=== PATIENT | female | born 1990 | race African-American/Black ===

== ENCOUNTER 2019-09-17 13:31 | Emergency (ER) | payer OTHER, SELFPAY ==
[2019-09-17 13:48] VITALS: BP 127/67; PULSE 85; RESP 18; TEMP 36.4; O2SAT 97
--- NOTE | 2019-09-17 13:50 | ED.GENADULT ---
HPI - General Adult General Chief complaint: Ear Stated complaint: left ear pain Source: patient and RN notes reviewed Mode of arrival: ambulatory Limitations: no limitations History of Present Illness HPI narrative: This is a 29 years old female presents to the office for an evaluation of left ear pain for one week. Pain is radiated down to her throat/neck. Denies any other associated symptoms such as cough, fever, sore throat or abdominal pain. She tried otc ear drops and tylenol with no relief. Related Data Allergies Allergy/AdvReac Type Severity Reaction Status Date / Time No Known Allergies Allergy Verified 09/17/19 13:53 Review of Systems Review of Systems: Narrative: CONSTITUTIONAL: Denies fever, chills. ENT: Denies congestion, sore throat, or dental pain CARDIOVASCULAR: Denies chest pain RESPIRATORY: Denies cough GASTROINTESTINAL: Denies abdominal pain, nausea, vomiting GENITOURINARY: Denies urinary symptoms SKIN: Denies rash MUSCULOSKELETAL: Denies acute back pain NEUROLOGIC: Denies lightheaded PMFSH Social History Social History Gender identity (if verbalized by the patient): Female Comments At time of signature, I agree with nursing past medical, surgical, social and family history. There is no relevant family history pertinent to the presenting complaint. Exam Narrative: Exam Narrative: GENERAL: This is a well-nourished, well-developed patient, in no apparent distress. EARS: External ears normal, auditory canals clear and without drainage, TMs normal without perforation, left TM noted fluid level. Hearing grossly intact. NOSE: External nose normal with no obvious nasal discharge, nares without redness, no rhinorrhea. THROAT: Mucous membranes moist, posterior pharynx clear. NECK: Neck supple, non-tender without lymphadenopathy, masses or thyromegaly. CARDIOVASCULAR: Regular rate and rhythm without murmurs, gallops, or rubs. RESPIRATORY: Clear to auscultation. Breath sounds equal bilaterally. No wheezes, rales, or rhonchi. GASTROINTESTINAL: Abdomen soft, non-tender, nondistended. Bowel sounds are active. No hepato-splenomegaly, or palpable masses. No guarding. SKIN: warm, intact with no suspicious lesions or rash, good texture and turgor. NEURO: awake, alert, and oriented to person, place and time. There were no obvious focal neurologic abnormalities. Steady gait M[place] Coma Scale Eye Opening: Spontaneous 4 [place] Coma Scale Motor: Obeys Commands 6 [place] Coma Scale Verbal: Oriented 5 Course Vital Signs Vital signs: Vital Signs Temperature 97.6 F 09/17/19 13:48 Pulse Rate 85 09/17/19 13:48 Respiratory Rate 18 09/17/19 13:48 Blood Pressure 127/67 09/17/19 13:48 Pulse Oximetry 97 09/17/19 13:48 Temperature 97.6 F 09/17/19 13:48 Pulse Rate 85 09/17/19 13:48 Respiratory Rate 18 09/17/19 13:48 Blood Pressure 127/67 09/17/19 13:48 Pulse Oximetry 97 09/17/19 13:48 Medical Decision Making MDM Narrative Medical decision making narrative: Discharge instructions reviewed with patient, as well as provided in writing per nursing staff. The instructions also include specific and strict return/GO TO THE ER as well as f/u information. All questions have been answered, and the patient deny any further questions with discharge and discharge plan. Differential Diagnosis Differential Diagnosis: otitis media, cerumen impaction, otitis externa, URI Vital Signs Vital Signs: Vital Signs Temperature 97.6 F 09/17/19 13:48 Pulse Rate 85 09/17/19 13:48 Respiratory Rate 18 09/17/19 13:48 Blood Pressure 127/67 09/17/19 13:48 Pulse Oximetry 97 09/17/19 13:48 Temperature 97.6 F 09/17/19 13:48 Pulse Rate 85 09/17/19 13:48 Respiratory Rate 18 09/17/19 13:48 Blood Pressure 127/67 09/17/19 13:48 Pulse Oximetry 97 09/17/19 13:48 Critical Care Time Critical Care Time Critical Care T
== END 2019-09-17 14:02 | disposition home or self-care (01) ==
PROVIDERS: Emergency Provider Nurse Practitioner
DX: H65.02 Acute serous otitis media, left ear (principal)
CPT/HCPCS: 99213; G0463

== ENCOUNTER 2020-06-17 16:01 | Emergency (ER) | payer OTHER, SELFPAY ==
[2020-06-17 16:11] VITALS: BP 142/89; PULSE 91; RESP 16; TEMP 36.8; O2SAT 99
--- NOTE | 2020-06-17 16:28 | ED.FEMALEGU ---
HPI - Female Genitourinary General Chief complaint: Urogenital-Female Stated complaint: possible uti Time Seen by Provider: 06/17/20 16:28 Source: patient Mode of arrival: ambulatory Limitations: no limitations History of Present Illness HPI Narrative: Vianney Guy is a 30 yo female with no PMH with no history of sick since February, comes with complaints of discharge that started after her menses stopped. She denies any pain denies any lesions. Discharge been present for 2 days; has odor Related Data Allergies Allergy/AdvReac Type Severity Reaction Status Date / Time No Known Allergies Allergy Verified 06/17/20 16:05 Review of Systems Review of Systems: Narrative: CONSTITUTIONAL: Denies fever, chills, sweats. EYES: Denies visual changes, redness, discharge. ENT: Denies rhinorrhea, congestion, sore throat, otalgia. CARDIOVASCULAR: Denies chest pain, palpitations, edema. RESPIRATORY: Denies dyspnea, wheezing, cough GASTROINTESTINAL: Denies abdominal pain, nausea, vomiting, diarrhea. GENITOURINARY: Mild dysuria, hematuria, has abnormal discharge SKIN: Denies rash or itching. NEUROLOGIC: Denies numbness, or focal weakness. PSYCHIATRIC: Denies anxiety or depression. PMFSH Past Medical History Medical History No acute medical problems Family History Family History Other Hypertension Social History Social History Smoking status: Never smoker Alcohol intake: never Gender identity (if verbalized by the patient): Female Comments At time of signature, I agree with nursing past medical, surgical, social and family history. There is no relevant family history pertinent to the presenting complaint. Exam Narrative: Exam Narrative: GENERAL: This is a well-nourished, well-developed patient, in mild distress. HEAD: normocephalic, atraumatic. EYES: Sclera clear/white. Vision is grossly intact. EARS: External ears normal, Hearing grossly intact. NOSE: External nose normal without nasal discharge, nares without redness, no rhinorrhea. THROAT: Mucous membranes moist, NECK: Neck supple, CARDIOVASCULAR: Regular rate and rhythm without murmurs, gallops, or rubs. RESPIRATORY: Clear to auscultation. Breath sounds equal bilaterally. No wheezes, rales, or rhonchi. GASTROINTESTINAL: Abdomen soft, Genitourinary: moderate amount of white discharge at vaginal opening, n lesions in vaginal vault,no CMT SKIN: warm, intact with no suspicious lesions or rash, good texture and turgor. NEURO: awake, alert, and oriented to person, place and time. There were no obvious focal neurologic abnormalities. Steady gait EXTREMITIES: Normal range of motion. BACK: Nontender without deformity Course Course Emergency Course: Patient came for assessment of vaginal discharge post menses denies any sexual activity Pelvic exam done patient will be treated with metronidazole orally discussed whether she needed additional STD treatment; patient declined Start metronidazole 500 mg 1 twice daily x7 days follow-up with [facility] Vital Signs Vital signs: Vital Signs Temperature 98.3 F 06/17/20 16:11 Pulse Rate 91 06/17/20 16:11 Respiratory Rate 16 06/17/20 16:11 Blood Pressure 142/89 H 06/17/20 16:11 Pulse Oximetry 99 06/17/20 16:11 Temperature 98.3 F 06/17/20 16:11 Pulse Rate 91 06/17/20 16:11 Respiratory Rate 16 06/17/20 16:11 Blood Pressure 142/89 H 06/17/20 16:11 Pulse Oximetry 99 06/17/20 16:11 MDM - Female Genitourinary Differential Diagnosis Differential diagnosis: Likely urinary tract infection, bacterial vaginosis, vaginitis, cystitis and other Lab Data Labs: Urine Glucose Negative Reference Range: Negative Urine Bilirubin Negative
== END 2020-06-17 17:03 | disposition home or self-care (01) ==
PROVIDERS: Emergency Provider Nurse Practitioner
DX: N76.0 Acute vaginitis (principal); R30.0 Dysuria
CPT/HCPCS: 81003; 87086; 99214; G0463

== ENCOUNTER 2024-01-02 13:49 | Outpatient (CLI) | payer OTHER, SELFPAY ==
--- NOTE | ~2024-01-02 | XR_ITS ---
EXAMINATION: XR ankle RT min 3V DATE: 01/02/2024 14:07 INDICATION: Right ankle pain. TECHNIQUE: 3 views of right ankle were obtained. COMPARISON: None. FINDINGS: Bone alignment is normal. No fracture. Joint spaces are normal. There is an enthesophyte at posterior aspect of calcaneal tuberosity. IMPRESSION: 1. No fracture. Reviewed, dictated and finalized at location A. IMPRESSION: 1. No fracture.
== END 2024-01-02 13:50 | disposition home or self-care (01) ==
LOC: ANHIMG 13:50
PROVIDERS: Visit Provider Podiatrist Foot & Ankle Surgery
DX: S93.401A Sprain of unspecified ligament of right ankle, initial encounter (principal); X58.XXXA Exposure to other specified factors, initial encounter
CPT/HCPCS: 73610

== ENCOUNTER 2024-02-05 14:46 | Emergency (ER) | payer OTHER, SELFPAY ==
--- NOTE | ~2024-02-05 | CT_ITS ---
EXAMINATION: CT abdomen pelvis w con DATE: 02/05/2024 17:30 INDICATION: Left lower quadrant abdominal pain TECHNIQUE: Computed tomography (CT) of the abdomen and pelvis was performed with 100 mL Omnipaque-350 intravenous contrast. Automated exposure control and iterative reconstruction technique were employe d. The dose-length product was 1525.04 mGy-cm. COMPARISON: None FINDINGS: Calcified nodule at the azygos esophageal recess of the right lower lobe consistent with old granulom atous disease. Heart size is normal. No pericardial or pleural effusion. Focal hepatic steatosis at t he ligamentum teres. Gallbladder, spleen, pancreas, bilateral adrenal glands and right kidney are nor mal. There are couple left renal cysts the larger measuring 1.6 cm. Bladder, uterus and bilateral adn exa are unremarkable. Bowels including the appendix are normal. No free intraperitoneal gas or fluid. No pathologically enlarged abdominal or pelvic lymphadenopathy. Bones are unremarkable. IMPRESSION: 1. No acute intra-abdominal/pelvic process. Reviewed, dictated and finalized at location B.
[2024-02-05 15:04] VITALS: BP 163/89; PULSE 106; RESP 17; TEMP 36.6; O2SAT 99
--- NOTE | 2024-02-05 15:06 | ED.ABDPAIN ---
HPI - Abdominal Pain General Chief Complaint: Abdominal Pain Stated Complaint: low abd pain Time Seen by Provider: 02/05/24 15:06 Focused HPI: This is a 33-year-old female that presents to the emergency department for left lower abdominal pain. Ongoing over the last week. Denies fevers, diarrhea, dysuria, hematuria, or vomiting. GENERAL: Well-appearing, well-nourished, and in no acute distress. HEAD: Normocephalic, atraumatic. CHEST: Clear to auscultation. ?No respiratory distress. HEART: Regular rate and rhythm.? NEURO: ?Alert and oriented x3. Patient screened in triage and initial orders placed.? ?Additional care and disposition to be based upon?diagnostic testing and treatment. Related Data Home Medications Medication Instructions Recorded Confirmed fluticasone propionate 50 1 spray intranasal DAILY 12/05/21 mcg/actuation nasal spray,suspension (Flonase Allergy Relief) Allergies Allergy/AdvReac Type Severity Reaction Status Date / Time No Known Allergies Allergy Verified 12/05/21 11:56 Review of Systems Review of Systems: CONSTITUTIONAL: Denies fever GASTROINTESTINAL: Reports abdominal pain. Denies nausea, vomiting, or diarrhea. GENITOURINARY: Denies dysuria or hematuria. All systems reviewed & are unremarkable except as noted in HPI and below PMFSH Past Medical History Medical History Allergies Anxiety No acute medical problems Family History Family History Grandparent Diabetes mellitus Other Hypertension Social History Social History Smoking status: Never smoker Alcohol intake: current Alcohol use details: occasionally Substance use: never Gender identity (if verbalized by the patient): Female Exam Narrative: GENERAL: Well-appearing, well-nourished, and in no acute distress. HEAD: Normocephalic, atraumatic. EYES: EOMI. CHEST: Clear to auscultation. No respiratory distress. No wheezes rales or rhonchi HEART: Regular rate and rhythm. No murmur heard. Normal peripheral pulses. ABDOMEN: Soft, nondistended, normal active bowel sounds. Mild tenderness to palpation in the left lower abdomen, without guarding EXTREMITIES: Normal range of motion. No edema. SKIN: Warm, dry, no rash. NEURO: No focal deficits. Alert and oriented x3. PSYCH: Normal mood and affect Course Course Emergency Course: Patient updated on her workup and agrees with plan of care Vital Signs Vital signs: Vital Signs Temperature 97.8 F 02/05/24 15:04 Pulse Rate 106 H 02/05/24 15:04 Respiratory Rate 17 02/05/24 15:04 Blood Pressure 163/89 H 02/05/24 15:04 Pulse Oximetry 99 02/05/24 15:04 Oxygen Delivery Room Air 02/05/24 15:04 Temperature 97.8 F 02/05/24 15:04 Pulse Rate 106 H 02/05/24 15:04 Respiratory Rate 17 02/05/24 15:04 Blood Pressure 163/89 H 02/05/24 15:04 Pulse Oximetry 99 02/05/24 15:04 Oxygen Delivery Room Air 02/05/24 15:04 MDM - Abdominal Pain MDM Narrative Medical decision making narrative: Patient presents the emergency department for left-sided lower abdominal pain. Ongoing over the last week. She is afebrile and nontoxic appearing. CBC with mild leukocytosis to 11.2. Metabolic panel without concerning findings. Urine without evidence of infection. This was sent for culture. Patient given 1st dose of antibiotics IV in the ER. CT abdomen and pelvis without acute findings. Patient updated on workup and agree with plan of care. She is to follow up with primary provider. Will be continued on oral antibiotics. She was given warnings to return to the ER Differential Diagnosis Differential diagnosis: Likely abdominal pain, calculus of kidney, constipation, diverticulitis and other (UTI) Lab Data Attestation: I reviewed the patient's lab results.
--- NOTE | 2024-02-05 15:32 | PC.NURSE ---
Patient given urine cup to provide urine specimen.
[2024-02-05 15:39] LABS: Basophils Percent Auto 0.4 % (0.2-1.2); Eosinophils Absolute Auto 0.1 K/mm3 (0-0.3); Eosinophils Percent Auto 0.7 % (0-4.4); Hematocrit 43.2 % (37.0-47.0); Hemoglobin 13.8 g/dL (12.0-15.0); Immature Granulocyte Absolute 0.03 K/mm3 (0.00-0.031); Immature Granulocyte Percent A 0.3 % (0-0.5); Lymphocytes Absolute Auto 2.75 K/mm3 (0.9-3.2); Lymphocytes Percent Auto 24.6 % (18.3-44.2); Mean Corpuscular HGB Conc 31.9 g/dl (32-36); Mean Corpuscular Hemoglobin 26.9 pg (26-34); Mean Corpuscular Volume 84.2 fl (80-100); Mean Platelet Volume 10.2 fl (7.4-10.4); Monocytes Absolute Auto 0.3 K/mm3 (0.1-0.6); Monocytes Percent Auto 2.8 % (2.6-8.5); Neutrophils Percent Auto 71.2 % (45.5-73.1); Platelet Count Result 371 k/mm3 (150-375); Red Blood Count 5.13 M/mm3 (4.2-5.4); White Blood Count 11.2 K/mm3 (4.5-10.0)
[2024-02-05 15:50] LABS: Alanine Aminotransferase 14 U/L (6-35); Albumin Level 4.3 g/dL (3.5-5.1); Alkaline Phosphatase 93 U/L (38-126); Anion Gap 10 mmol/L (4-12); Aspartate Amino Transferase 21 U/L (14-36); Bilirubin,Total 0.3 mg/dL (0.2-1.3); Blood Urea Nitrogen 11 mg/dL (7-17); Calcium 9.2 mg/dL (8.4-10.2); Carbon Dioxide 31 mmol/L (22-30); Chloride 95 mmol/L (98-107); Estimated CRCL calculation 103 ml/min; Estimated Glomerular Filt Rate > 60; Glucose 120 mg/dL (65-110); Lipase 66 U/L (23-300); Potassium 3.5 mmol/L (3.4-5.0); Sodium 136 mmol/L (137-145)
--- NOTE | 2024-02-05 15:53 | PC.NURSE ---
Patient states she is unable to urinate at this time due to urgent care ( [facility] in [place]) visit this AM. Patient states that th urgent care center recommended a pelvic exam or ultrasound for possibly an ovarian cyst. Patient states she cant get in to OBGYN until february
--- NOTE | 2024-02-05 16:08 | PC.NURSE ---
Assisted patient to the restroom at this time. Patient continues to state she is unable to urinate but patient states she will try.
[2024-02-05 16:22] LABS: BEDSIDEPREGUCG Negative (Negative)
[2024-02-05 16:29] LABS: Add Urine Microscopic? YES; Appearance Urine Turbid (Clear); Bacteria Urine 4+ /hpf; Bilirubin Urine Negative (Negative); Blood Urine 3+ (Negative); Color Urine Yellow (Yellow); Glucose Urine UA Negative (Negative); Ketones Urine Trace mg/dL (Negative); Leukocyte Esterase Ur 1+ LEU/UL (Negative); Nitrate Urine Negative (Negative); Non Pathogenic Casts 0-2; Protein Urine 3+ mg/dL (Negative); Specific Grav Ur 1.031 (1.001-1.035); Squamous Epithelial Cell Urine Many /hpf (Few); WBC Urine 21-50 /hpf (0-3); pH Urine 5.5 (5.0-9.0)
[2024-02-05] MEDS: diphenhydrAMINE HCl INJ 50 MG/ML VIAL 25 MG IV PUSH (18:28)
[2024-02-05 19:00] VITALS: BP 144/89; PULSE 94; RESP 18; O2SAT 99
== END 2024-02-05 19:01 | disposition home or self-care (01) ==
PROVIDERS: Emergency Provider Physician Assistant
DX: N39.0 Urinary tract infection, site not specified (principal)
CPT/HCPCS: 36415; 74177; 80053; 81001; 81025; 83690; 85025; 87086; 96365; 96375; 99284; J0696; J1200; Q9967